=== PATIENT | male | born 1950 | race Caucasian/White ===

== ENCOUNTER 2019-01-25 08:00 | Observation (INO) ==
--- NOTE | 2019-01-06 20:35 | ANES ---
Anesthesia Pre Procedure Eval HOME MEDICATIONS ascorbic acid (vitamin C) 1,000 mg tablet 1 g PO DAILY 12/04/18 [Last Taken Unknown] calcium carb-Ca gluc 500 mg calcium-magnesium ox-Mg gluc 250 mg tablet 3 tab PO DAILY tab 12/04/18 [Last Taken Unknown] garlic tablet 2 tab PO DAILY tab 12/04/18 [Last Taken Unknown] herbal drugs tablet tab PO tab 12/04/18 [Last Taken Unknown] multivitamin tablet 1 tab PO DAILY 12/04/18 [Last Taken Unknown] omega-3 fatty acids 1,000 mg capsule 1,000 mg PO BID cap 12/04/18 [Last Taken Unknown] saw palmetto 160 mg capsule 480 mg PO DAILY cap 12/04/18 [Last Taken Unknown] iodine 150 mcg tablet 150 mcg PO DAILY tab 12/08/18 [Last Taken Unknown] magnesium citrate 125 mg capsule 500 mg PO DAILY 12/08/18 [Last Taken Unknown] Allergies/Adverse Reactions: Allergies Allergy/AdvReac Type Severity Reaction Status Date / Time No Known Allergies Allergy Verified 01/06/19 08:28 - Planned Procedure Planned Procedure: R total knee Medication List Reviewed:: Yes Allergies Verified: Yes Medical History (Updated 01/06/19 @ 08:28 by Shama Moore RN) Anemia Onset Date: Unknown Chronic pain Onset Date: Unknown IBS (irritable bowel syndrome) Onset Date: Unknown patient denies having IBS Surgical History (Updated 12/04/18 @ 07:54 by Danette Archuleta) History of appendectomy Onset Date: Unknown age 23 History of eye surgery Onset Date: Unknown 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 Family History (Last Reviewed 01/06/19 @ 08:28 by Shama Moore RN) Father , - was also a smoker CHF (congestive heart failure) Lung cancer Mother Dementia - Family Anesthesia History Family History:: no untoward family reactions to anesthesia, no familial bleeding tendencies, no family history of clotting disorders, no family history of premature - Airway/Neck/Teeth Within Normal Limits:: Yes - chipped tooth Mallampatti Score: 1 Thyromental (T-M) distance: > 6 cm Mandibulo Hyoid distance: > 3 cm - Respiratory Smoking Status: Never smoker Discussed smoking cessation including day of surgery: No Sleep Apnea currently treated: No Sleep Apnea by current assessment: No Discussed Risks/Treatment of ADDIS: No - Cardiovascular Tolerate Activity: Good Heart Sounds: S1 & S2, Regular - Anesthesia Assessment and Plan ASA Class: PS, II Anesthesia Type Plan: Block - Right ultrasound guided adductor canal nerve block for postop analgesia, Spinal
[2019-01-25] MEDS: RINGER'S SOLUTION,LACTATED 1,000 ML IV PRN ×4 (07:19→10:10)
[~2019-01-25 08:00] MED LIST: MORPHINE SULFATE 15 MG TABLET.SA PO PRN; ROPIVACAINE HCL/PF 100 MG, EPINEPHrine 0.2 MG, KETOROLAC TROMETHAMINE 30 MG in NORMAL S... IJ PRN; TRANEXAMIC ACID 1,000 MG in NORMAL SALINE 100 ML IV PRN; ceFAZolin SODIUM 1 GM VIAL IV PRN
[2019-01-25] MEDS ORDERED: ZOLPIDEM TARTRATE 5 MG TABLET PO PRN (09:49)
[2019-01-25] MEDS ORDERED: MAG HYDROX/ALUMINUM HYD/SIMETH 30 ML UDC PO PRN (09:49)
[2019-01-25] MEDS ORDERED: MORPHINE SULFATE 2 MG/ML DISP.SYRIN IV PRN (09:49)
[2019-01-25] MEDS ORDERED: MAGNESIUM HYDROXIDE 30 ML UDC PO PRN (09:49)
[2019-01-25] MEDS ORDERED: diphenhydrAMINE HCL 50 MG/ML VIAL IV PRN (09:49)
[2019-01-25] MEDS ORDERED: DEXTROSE 5%-LACTATED RINGERS 1,000 ML IV PRN (09:49)
[2019-01-25] MEDS ORDERED: ACETAMINOPHEN 500 MG TABLET PO PRN (09:49)
--- NOTE | 2019-01-25 09:57 | OR ---
Operative Report - Dictated Report Narrative: Date: 01/25/2019 Preoperative diagnosis: Right Knee degenerative joint disease. Postoperative diagnosis: Right Knee degenerative joint disease. Procedure: Right Total knee arthroplasty. Surgeon: Micha Varela M.D. Hairpiece Stylist: Francisco Malave PA-C (provided and essential set of skilled, educated hands that assisted with transfer, positioning, prepping, draping, manipulation, retraction, placement of jigs, injection, insertion of implants, irrigation, closure wounds, and dressings all of which could not be performed by the available surgical crew) Anesthesia: Spinal with regional block and local periarticular joint injection. Complications: None Specimens: Bone- for disposal as patient declined pathology Estimated blood loss: Minimal. Tourniquet time: 100 Minutes at 325 millimeters of mercury. Retained implants: Depuy Attune size 7 right lugged cemented posterior stabilized femoral component. Size 7 fixed-bearing cemented tibial platform. 7 by 5 millimeter posterior stabilized cross-linked tibial insert. 41 millimeter medialized patella button. Indications: Mr. Driver is a 68-year-old gentleman who has had long-standing right knee valgus arthrosis. This patient was followed in my clinic for period of time with significant complaints of right knee pain consistent with arthritic changes. Knee had failed conservative measures including, but not limited to, activity modification, passage of time, medications, and other conservative measures. Patient wished to proceed with surgical treatment. The risks, benefits, and alternatives were discussed in clinic. The risks of , blood clots, bleeding, infection, nerve/tendon blood vessel/ injury, malposition of components, intraoperative fracture, postoperative limited range of motion, persistent pain, failure of components, and need for additional procedures. Patient wished to proceed consent was obtained after answering all questions. Procedure: After marking the correct extremity on the floor, the patient was taken to the operating room. A timeout was performed. IV antibiotics consisting of Ancef were administered prior to the procedure. A regional followed by spinal anesthetic was induced by anesthesia, per my request, on the operative table with all bony prominences well-padded. Pearl catheter was placed, and a bump was placed under the operative side buttock. SCDs and SATHYA hose were utilized on the nonoperative leg. A well-padded tourniquet was applied to the operative thigh. The operative leg was then pre-scrubbed with alcohol, prepped, and draped in a standard sterile fashion. After exsanguinating the extremity with an Esmarch bandage, the tourniquet was inflated. After marking out the anterior knee for standard incision centered over the patella, the skin was incised and dissected down to the joint retinaculum. The joint retinaculum was marked out as well as the horizontal axis of the patella, and a standard medial parapatellar arthrotomy was then made. The most proximal aspect of the quadriceps tendon and the patella tendon insertion were protected from release. A partial synovectomy was performed as well as a resection of the infrapatellar fat pad. The distal femoral fat pad proximal to the trochlea was also resected using cautery. The soft tissues were elevated off the medial aspect of the proximal tibia using a Dash elevator ensuring that we did not transect the medial collateral ligament. Upon initial evaluation range of motio n was approximately 10 degrees to 100 degrees of flexion. There were signs of advanced arthrosis in the lateral and patellofemoral greater than medial joint spaces. There were large marginal osteophytes which were removed with a rongeur. The knee was hyperflexed and the patella was tucked laterally. Protecting the surrounding soft tissues with Homans, an entry drill was placed down the femoral canal using Whitesides line for guidance into the entry point. The intramedullary femoral alignment elisa was utilized in order to cut the distal femur in 5 degrees of valgus resecting 12 millimeters of bone. Next the distal femur was sized to a size 7. A posterior referencing guide was utilized to place the distal femoral cutting block in 3 degrees of external rotation. This was pinned into place. The rotation was confirmed both visually and based on anatomic landmarks. The 4 in 1 cutting jig of the appropriate size was utilized in order to make all bony cuts. The angle wing was used to ensure no notching. Retractors were utilized in order to protect surrounding soft tissues. This cut did not result in any excessive notching. We then cut the box centered over the distal femur. This allowed for resection of the anterior and posterior cruciate ligaments. I then turned my attention to the preparation of the tibia. Using an extra medullary tibial alignment elisa, 4 millimeters of bone was resected off the medial articular surface. This was made perpendicular to the mechanical axis of the joint with the alignment elisa centered over the ankle mortise. The alignment elisa was checked and was noted to be parallel to the mechanical axis, centered over the medial one third of the tibial tubercle, paralleling the anterior surface of the tibia. We then turned our attention to the remaining meniscus and soft tissues. These were removed while protecting the surrounding ligaments and soft tissues. The marginal osteophytes off the anterior, posterior, medial, lateral aspects of the femur and tibia were removed. The tibia was sized out to a size 7. Next the tibia was drilled and punched in an externally rotated position. Next the trial femur and a series of tibial inserts were utilized in order to allow for full extension and maximal flexion. It was found that a 5 millimeter insert gave the best range of motion and stability at multiple flexion points as well as at full extension there was less than 2 mm of gapping both medially and laterally. There is minimal anterior translation with the knee at 90 degrees of flexion and no signs of being able to dislocate the knee. The patella was then prepared. The initial thickness was 28 millimeters. This was reamed down to 17 millimeters parallel to the anterior surface of the patella. It was sized out to a size 41 medialized patella button. This was then drilled and trialed. Without any medial restraint the patella tracked appropriately and did not sublux or dislocate. At this point, it was felt these were the appropriate sized implants, and all trials were removed. The standard periarticular joint injection consisting of ropivacaine, Toradol, and epinephrine were injected into the periarticular joint tissues. The bony surfaces were thoroughly irrigated with a pulsatile-suction saline irrigation device. A bone plug from the prior resected anterior chamfer cut was placed into the drill hole at the distal femur. The bony surfaces were then dried in preparation for placement of the implants. The cement was vacuum mixed per the loom control chain builder's instructions. The cement was placed on the dry bony surfaces and posterior aspect of the implants. The implants were impacted into place, removing all extruded cement. At this point anesthesia administered tranexamic acid per protocol intravenously. The knee was placed in extension with axial loading with the trial insert while the cement cured. Once the cement cured, all remaining extruded cement was removed. The knee was placed through a range of motion with the trial insert to ensure appropriate range of motion and stability. Final range of motion was approximately 0 to 120 degrees. The knee was again thoroughly irrigated with pulsatile saline lavage. The final polyethylene insert was then impacted into place ensuring no retained soft tissues. The remaining periarticular joint injection was injected. A medium Hemovac drain was placed exiting superior laterally. The knee was then placed over a triangle and the arthrotomy was closed with interrupted #1 Vicryl after thoroughly irrigating the joint. The deep and subcutaneous tissues were closed with interrupted 0 and 3-0 Vicryl respectively. Skin was closed with a running subcutaneous 3-0 Monocryl and Prineo Dermabond dressing. 4 x 4's, Sof-Rol, and a full leg Lance wrap were applied. All sponge, needle, blade, and instrument counts were correct prior to closing the wounds. Postoperative condition: The patient was awoken and transferred to the postanesthesia care unit in stable condition. Plan is to be admitted to the inpatient medical/surgical floor postoperatively for 24 hours of IV antibiotics, physical therapy, occupational therapy, and medical comanagement. Patient will be weightbearing as tolerated with range of motion as tolerated. DVT prophylaxis will be with SCDs, SATHYA hose, and pharmacological anticoagulation. Anticipated hospital stay is approximately 1-3 days.
--- NOTE | 2019-01-25 10:10 | ANES ---
Post Anesthesia Discharge - Transfer of Care Transfer of Care handoff given to nurse: Yes - Discharge from PACU Discharge from PACU when meets criteria: Yes - Discharge to ASU Discharge to ASU-no complications/pt stable: Yes
--- NOTE | 2019-01-25 10:14 | ANES ---
Anesthesia Procedure Note Procedure Note: ANESTHESIA PROCEDURE NOTE Date of Procedure: 01/25/2019. Time of procedure: 734. Performed by: Darius Callejas CRNA Well Tender: None. Preprocedure diagnosis: Right knee degenerative joint disease. Post procedure diagnosis: Same. Procedure: Right ultrasound guided adductor canal block for postoperative analgesia. Indications: The patient is a 68-year-old male, requesting right ultrasound guided adductor canal block for postoperative analgesia related to right total knee arthroplasty. Findings: See below. for postop right total knee arthroplasty Irative analgesia related to Details of the adductor canal block forprocedure: The tissue over the intended target site was cleansed with ChloraPrepand draped in a sterile fashion. 2 ml Lidocaine 1 % was infiltrated to the skin and subcutaneous tissue at the intended target site. Under sterile technique and ultrasound guidance a 18-gauge Tuohy needle was inserted through the right sartorius muscle to the saphenous nerve just anterior and medial to the superficial femoral artery and vein. 15 mL's of 0.5% bupivacaine was injected after negative aspiration for blood. Needle tip and spread of local anesthetic surrounding the saphenous nerve was observed throughout the injection with real time ultrasound visualization. The Tuohy needle was then removed intact. No complications were noted. The images were retained in the Hospital medical database. EBL: Minimal. Fluids: N/A. Specimen: N/A. Post procedure condition: The patient tolerated the procedure well. No complications were noted. Thank you for this consultation. Darius Callejas CRNA The abductor canal block
[2019-01-25] MEDS: KETOROLAC TROMETHAMINE 15 MG/ML VIAL IV SCH ×3 (10:48→21:01)
[2019-01-25] MEDS: ceFAZolin SODIUM 1 GM in DEXTROSE 5 % IN WATER 50 ML IV SCH ×6 (10:50→23:50)
[2019-01-25] MEDS: oxyCODONE HCL/ACETAMINOPHEN 1 TAB TABLET PO PRN ×3 (11:21→22:36)
--- NOTE | 2019-01-25 13:55 | ANES ---
Post Anesthesia Assessment - Vital Signs Vitals: Last Vital Signs Temp 36.5 C 01/25/19 12:21 Pulse 66 01/25/19 13:21 Resp 14 01/25/19 13:21 BP 127/75 01/25/19 13:21 Pulse Ox 95 01/25/19 13:21 Airway Patency: Normal - Mental Status Level Of Consciousness: Awake - Pain Level Pain Score: 4 - N/V Assessment Nausea/Vomiting Presence: None Dehydration:: No
--- NOTE | 2019-01-25 16:19 | PN ---
Subjective - Date and Time Seen Date: 01/25/19 Time: 16:18 Subjective Narrative: Amos reports doing well. Pain is controlled. No nausea, fever, chills. He has no concerns at this time. Objective - Vitals Vitals: Last Vital Signs Temp 36.5 C 01/25/19 12:21 Pulse 76 01/25/19 15:21 Resp 14 01/25/19 13:21 BP 115/67 01/25/19 15:21 Pulse Ox 97 01/25/19 15:21 - Exam Constitutional: Present: Alert, Oriented x3, Cooperative Respiratory: Present: lungs clear, normal breath sounds Cardiovascular/Chest: Present: regular rate, rhythm, no murmur Abdomen: Present: soft, nontender, hypoactive Appearance: Present: appropriate appearance, appropriate insight Eye contact: Present: cooperative, good eye contact, normal speech Thoughts: Present: normal thought pattern, no apparent hallucination Cauti Physician Documentation - Urinary Catheter Management Urethral (Pearl) Date of Insertion: 01/25/19 Time of Insertion: 08:00 Assessment/Plan Plan Narrative: POD #0 - Medically doing well, no concerns. - Will follow along for medical management - Problems/Diagnosis (1) Osteoarthritis of knee Problem: Chronic Qualifiers: Osteoarthritis type: post-traumatic Laterality: right Qualified Code(s): M17.31 - Unilateral post-traumatic osteoarthritis, right knee (2) Status post total right knee replacement Problem: Acute
[2019-01-25] MEDS: ONDANSETRON HCL/PF 2 MG/ML VIAL IV PRN ×2 (17:01→21:02)
[2019-01-25] MEDS ORDERED: SENNOSIDES/DOCUSATE SODIUM 1 TAB TABLET PO SCH (21:00)
[2019-01-25] MEDS: OMEGA-3 FATTY ACIDS 1 CAP CAPSULE PO SCH (21:01)
[2019-01-25] MEDS: MORPHINE SULFATE 15 MG TABLET.SA PO SCH (21:01)
[2019-01-26] MEDS: oxyCODONE HCL/ACETAMINOPHEN 1 TAB TABLET PO PRN ×2 (02:46→06:49)
[2019-01-26] MEDS: KETOROLAC TROMETHAMINE 15 MG/ML VIAL IV SCH ×3 (04:28→16:14)
[2019-01-26 06:29] LABS: Hematocrit 34.3 % (42.0-52.0); Hemoglobin 11.3 gm/dL (13.5-18.0); Mean Cell Volume 86.8 fl (78-100); Mean Corpuscular Hemoglobin 28.6 pg (27-31); Mean Corpuscular Hgb Conc 32.9 g/dl (32-36); Mean Platelet Volume 9.1 fl (8-11.3); Neutrophil # 5.2 K/mm3 (1.3-6.0); Neutrophil % 71.2 % (42-75.0); Platelet Count 174 K/mm3 (150-450); Red Blood Count 3.95 M/mm3 (4.7-6.0); White Blood Count 7.3 K/mm3 (4.0-10.5)
[2019-01-26 06:38] LABS: Albumin * 2.8 gm/dl (3.4-5.0); BUN/Creatinine Ratio 16.7 (9.0-21.6); Bilirubin, Total 0.4 mg/dL (0.0-1.1); Calcium * 8.4 mg/dL (7.9-10.9); Carbon Dioxide 26.7 mmol/L (24-32.6); Estimated Creat Clear 111.1; Potassium 3.7 mmol/L (3.4-4.6); Total Protein 5.4 gm/dL (6.2-8.2)
[2019-01-26] MEDS: ONDANSETRON HCL/PF 2 MG/ML VIAL IV PRN (07:28)
[2019-01-26] MEDS: OMEGA-3 FATTY ACIDS 1 CAP CAPSULE PO SCH (08:49)
[2019-01-26] MEDS ORDERED: ENOXAPARIN SODIUM 40 MG/0.4 ML SYRG SC SCH (08:50)
[2019-01-26] MEDS: MORPHINE SULFATE 15 MG TABLET.SA PO SCH (08:53)
[2019-01-26] MEDS ORDERED: MULTIVITAMINS 1 CAP CAPSULE PO SCH (09:00)
[2019-01-26] MEDS ORDERED: ASCORBIC ACID 500 MG TABLET PO SCH (09:00)
[2019-01-26] MEDS ORDERED: MAGNESIUM OXIDE 400 MG TABLET PO SCH (09:00)
[2019-01-26] MEDS ORDERED: CALCIUM CARBONATE 500 MG TAB.CHEW PO SCH (09:00)
[2019-01-26] MEDS ORDERED: IODINE 150 MCG PO SCH (09:00)
[2019-01-26] MEDS: HYDROcodone/ACETAMINOPHEN 1 EACH TABLET PO PRN ×2 (11:13→18:16)
--- NOTE | 2019-01-26 16:15 | PN ---
Subjective - Date and Time Seen Date: 01/26/19 Time: 16:08 Subjective Narrative: Amos reports changing pain medications has helped his nausea/vomiting. He reports the vicodin is still sufficient to control his pain. Denies fever, chills, nausea (at this time). Leg is sore and worn out after PT, but no more than expected. Objective - Vitals Vitals: Last Vital Signs Temp 36.7 C 01/26/19 12:37 Pulse 78 01/26/19 12:37 Resp 18 01/26/19 12:37 BP 113/61 01/26/19 12:37 Pulse Ox 98 01/26/19 12:37 - Abnormal Lab Findings Abnormal Lab Findings: Abnormal Lab Results 01/26/19 01/26/19 Range/Units 05:05 06:23 RBC 3.95 L (4.7-6.0) M/mm3 Hgb 11.3 L (13.5-18.0) gm/dL Hct 34.3 L (42.0-52.0) % Lymphocytes % 15.6 L (20-51) % Monocytes % 9.9 H (0.0-9) % Lymphocytes # 1.14 L (1.5-3.5) k/mm3 Random Glucose 133 H (70-110) mg/dL Total Protein 5.4 L (6.2-8.2) gm/dL Albumin 2.8 L (3.4-5.0) gm/dl - Exam Constitutional: Present: Alert, Oriented x3, Cooperative ENT Exam: Present: hearing grossly normal Respiratory: Present: lungs clear, normal breath sounds Cardiovascular/Chest: Present: regular rate, rhythm, no murmur Abdomen: Present: Normal bowel sounds, soft, nontender, nondistended Appearance: Present: appropriate appearance, appropriate insight Eye contact: Present: cooperative, good eye contact, normal speech Thoughts: Present: normal thought pattern, no apparent hallucination Cauti Physician Documentation - Urinary Catheter Management Urethral (Pearl) Date of Insertion: 01/25/19 Time of Insertion: 08:00 Date of Removal: 01/26/19 Time of Removal: 10:20 Assessment/Plan Plan Narrative: POD #1 RTKA - Medically doing well - Acute Blood loss anemia, mild. Ok to monitor. - Ok to discharge when ok per Ortho and PT standpoint - Problems/Diagnosis (1) Osteoarthritis of knee Problem: Chronic Qualifiers: Osteoarthritis type: post-traumatic Laterality: right Qualified Code(s): M17.31 - Unilateral post-traumatic osteoarthritis, right knee (2) Status post total right knee replacement Problem: Acute (3) Acute blood loss anemia Problem: Acute
--- NOTE | 2019-01-26 16:31 | DS ---
(1) Osteoarthritis of knee Problem: Chronic Qualifiers: Osteoarthritis type: post-traumatic Laterality: right Qualified Code(s): M17.31 - Unilateral post-traumatic osteoarthritis, right knee (2) Status post total right knee replacement Problem: Acute (3) Acute blood loss anemia Problem: Acute Description of Stay: Mr. Driver was admitted to the floor after undergoing right total knee arthroplasty. Tolerated this well. Was admitted to the floor postoperatively for 24 hours of IV antibiotics, pain control, medical comanagement, and occupational and physical therapy. OT and PT were consulted to assist with activities of daily living and ambulation. Was made weightbearing as tolerated with range of motion as tolerated. Pain was initially controlled with IV regimen. This was transitioned to oral once tolerating a by mouth intake. Was resumed on home diet and medications. Had a Pearl catheter inserted and the operating room which was discontinued on postoperative day 1. A drain was placed intraoperatively into the knee which was discontinued on postoperative day 1. Lovenox SCD and SATHYA hose were utilized for DVT prophylaxis. Vital signs remained stable to the hospital course. Serial labs were obtained which showed a final hemoglobin of 11.3 grams. BMP was reviewed and was stable. Physical examination throughout the hospital course showed an extremity that had sensation that was intact to light touch, palpable pulses, a benign wound, motor intact to the toes, ankle, and knee. Knee range of motion was approximately 5 degrees to 70 degrees. Once an oral pain regimen was tolerated and physical therapy goals were met, it was felt that they were stable for discharge to home. Instructions: Continue with weightbearing as tolerated and range of motion as tolerated. It is OK to shower on the wound if it is not draining. If you note any drainage or for comfort you can cover with dry gauze and tape. Change every 2-3 days as needed. Continue with physical therapy. Resume home diet. Report any fever over 101.5 Fahrenheit, uncontrolled pain, increased drainage, foul odor of drainage, new or increased calf pain or shortness of breath, or any other significant complaints. A 325mg dialy aspirin will be started after finishing anticoagulation if not allergic. Continue with SATHYA hose on the operative extremity until instructed otherwise. No driving until instructed otherwise. Follow up in approximately 10-14 days. Procedures Performed: see notes below List Procedures: Right total knee arthroplasty Results and Findings: Lab Pending Results 01/25/19 08:00: WBC Cancelled, Corrected WBC (auto) Cancelled, RBC Cancelled, Hgb Cancelled, Hct Cancelled, MCV Cancelled, MCH Cancelled, MCHC Cancelled, RDW Cancelled, Plt Count Cancelled, MPV Cancelled, Immature Gran % (Auto) Cancelled, Immature Gran # (Auto) Cancelled, Neutrophils % Cancelled, Lymphocytes % Cancelled, Monocytes % Cancelled, Eosinophils % Cancelled, Basophils % Cancelled, Nucleated RBC % Cancelled, Neutrophils # Cancelled, Lymphocytes # Cancelled, Monocytes # Cancelled, Eosinophils # Cancelled, Absolute Basophils Cancelled 01/26/19 05:05: Sodium 140, Plasma Sodium 141, Potassium 3.7, Chloride 105, Carbon Dioxide 26.7, Anion Gap 12.0, BUN 11, Creatinine 0.66, Est GFR (Non-Af Amer) 128 D, BUN/Creatinine Ratio 16.7, Random Glucose 133 H, Calcium 8.4, Calcium Adj for Albumin 9.0, Total Bilirubin 0.4, AST 25, ALT 22, Alkaline Phosphatase 64, Total Protein 5.4 L, Albumin 2.8 L 01/26/19 06:23: WBC 7.3, RBC 3.95 L, Hgb 11.3 L, Hct 34.3 L, MCV 86.8, MCH 28.6, MCHC 32.9, RDW 13.0, Plt Count 174, MPV 9.1, Immature Gran % (Auto) 0.30, Immature Gran # (Auto) 0.02, Neutrophils % 71.2, Lymphocytes % 15.6 L, Monocytes % 9.9 H, Eosinophils % 2.6, Basophils % 0.4, Nucleated RBC % 0.0, Neutrophils # 5.2, Lymphocytes # 1.14 L, Monocytes # 0.7, Eosinophils # 0.2, Absolute Basophils 0.0 Discharge Location: Home Disposition: Home self-care Condition: Good Discharge Activity: Activity as tolerated, Weight bearing, Other - With walker Discharge Diet: General/regular food Referrals: Micha Varela MD [Staff Physician] - 02/16/19 9:30 am (Follow up in the office scheduled with Dr. Varela on 02/16/19 at 9:30am.) Problem Oriented Discharge Instructions to Patient/Family: Total Knee Replacement, Care After, [id number], Total Knee Replacement, [id number] Additional Patient Instructions (free text): Physical therapy at [facility] rehab scheduled for 01/28/19 at 9:00am. Follow up in the office with Dr. Varela scheduled on Friday02/16/19 at 9:30am. Prescriptions (Any new or edited meds): Enoxaparin Sodium [Lovenox] 40 mg SC Q24H #7 disp.syrin Morphine Sulfate [Ms Contin] 15 mg PO Q12H #20 tablet.sa HYDROcodone/ACETAMINOPHEN [[place] 5-325] 2 ea PO Q6H PRN #60 tab PRN Reason: Pain Promethazine HCl [Phenergan (Promethazine)] 25 mg PO Q6H PRN #30 tab PRN Reason: nausea/vomiting Sennosides/Docusate Sodium [Senokot-S] 2 tab PO HS #30 tab Complete Home Medications List: Complete Home Medication List: ascorbic acid (vitamin C) 1,000 mg tablet 1 g PO DAILY 12/04/18 calcium carb-Ca gluc 500 mg calcium-magnesium ox-Mg gluc 250 mg tablet 3 tab PO DAILY tab 12/04/18 garlic tablet 2 tab PO DAILY tab 12/04/18 herbal drugs tablet tab PO tab 12/04/18 multivitamin tablet 1 tab PO DAILY 12/04/18 omega-3 fatty acids 1,000 mg capsule 1,000 mg PO BID cap 12/04/18 saw palmetto 160 mg capsule 480 mg PO DAILY cap 12/04/18 iodine 150 mcg tablet 150 mcg PO DAILY tab 12/08/18 magnesium citrate 125 mg capsule 500 mg PO DAILY 12/08/18 Enoxaparin Sodium [Lovenox] 40 mg SC Q24H #7 disp.syrin 01/26/19 HYDROcodone/ACETAMINOPHEN [[place] 5-325] 2 ea PO Q6H PRN #60 tab 01/26/19 Morphine Sulfate [Ms Contin] 15 mg PO Q12H #20 tablet.sa 01/26/19 Promethazine HCl [Phenergan (Promethazine)] 25 mg PO Q6H PRN #30 tab 01/26/19 Sennosides/Docusate Sodium [Senokot-S] 2 tab PO HS #30 tab 01/26/19 Amb Orders for Discharge: PT Evaluation and Treatment* [facility], Location: Rehabilitation Services
[2019-01-26 20:59] VITALS: BP 102/64
== END 2019-01-26 20:05 | disposition home or self-care (01) ==
LOC: MS → EDSTATUS 08:00 → PREINTOOBSV 08:34
PROVIDERS: ADMIT Orthopaedic Surgery; ATTEND Orthopaedic Surgery
DX: M17.31 Unilateral post-traumatic osteoarthritis, right knee; Z96.651 Presence of right artificial knee joint; D62 Acute posthemorrhagic anemia
CPT/HCPCS: 36415; 73560; 80048; 80053; 85025; 87081; 97116; 97161; 97165; 97530; 97535; G0378; J2405